=== PATIENT | male | born 1990 | race Caucasian/White ===

== ENCOUNTER 2024-03-06 17:45 | Emergency (ER) | payer SELFPAY ==
[~2024-03-06] VITALS: Ht 182.9 cm; Wt 81.0 kg
[2024-03-06 17:58] VITALS: BP 134/93; RESP 18; TEMP 98.2; O2SAT 98
[2024-03-06 18:03] VITALS: PULSE 104
[2024-03-08] MEDS ORDERED: ONDA4TAB50 SL (11:24)
[2024-03-08] MEDS ORDERED: TOPUD PO (11:24)
[2024-03-08] MEDS ORDERED: PANT40TA51 PO (11:24)
== END 2024-03-06 21:44 | disposition left against medical advice (07) ==
LOC: ER 17:45
DX: R10.9 Unspecified abdominal pain (principal); Z53.21 Procedure and treatment not carried out due to patient leaving prior to being seen by health care provider

== ENCOUNTER 2024-11-19 09:11 | Emergency (ER) | payer MEDICAID ==
[~2024-11-19] VITALS: Ht 182.9 cm; Wt 91.0 kg
[~2024-11-19 09:11] MED LIST: ONDA4TAB50 SL; PANT40TA51 PO; TOPUD PO
[2024-11-19 09:19] VITALS: O2SAT 100
[2024-11-19] MEDS: MORPHINE SULFATE 4 MG/ML INJ (FOR IV/IM USE) IV STA (09:54)
[2024-11-19] MEDS: ONDANSETRON HCL 4MG/2ML INJ IV STA (09:55)
[2024-11-19] MEDS: SODIUM CHLORIDE 0.9% 1,000 ML IV ONE (09:55)
[2024-11-19] MEDS: MAGNESIUM/ALUMINUM HYDROXIDE/SIMETHICONE 30ML UDC PO STA (09:55)
[2024-11-19] MEDS: PANTOPRAZOLE SODIUM 40 MG/VIAL IV STA (09:55)
[2024-11-19 09:58] LABS: BASOPHILS % 0.4 % (0.0-2.0); EOSINOPHILS % 0.4 % (0.0-5.0); HEMATOCRIT. 48.5 % (42.0-52.0); HEMOGLOBIN. 15.9 g/dL (14.0-18.0); LYMPHOCYTES % 16.5 % (20.0-50.0); MEAN CORPUSCULAR HEMOGLOBIN 27.5 pg (28.0-32.0); MEAN CORPUSCULAR HGB CONC 32.8 g/dL (31.0-37.0); MEAN CORPUSCULAR VOLUME 83.7 fL (80.0-94.0); MEAN PLATELET VOLUME 7.7 fl (7.4-10.4); MONOCYTES % 7.5 % (2.0-8.0); NEUTROPHILS % 75.2 % (40.0-76.0); PLATELET 331 x1000/uL (130-400); RED CELL DISTRIBUTION WIDTH 13.4 % (11.6-14.6); WHITE BLOOD COUNT 12.6 x1000/uL (4.5-11.0)
[2024-11-19 10:00] LABS: CLARITY URINE CLEAR (CLEAR); COLOR URINE YELLOW (YELLOW); GLUCOSE URINE NEGATIVE (NEGATIVE); KETONES URINE 3+ (NEGATIVE); LEUKOCYTE ESTERASE URINE NEGATIVE (NEGATIVE); NITRITE URINE NEGATIVE (NEGATIVE); OCCULT BLOOD URINE NEGATIVE (NEGATIVE); PH URINE 6.5 (4.5-8.0); PROTEIN URINE NEGATIVE (NEGATIVE); SPECIFIC GRAVITY URINE 1.016 (1.005-1.030)
[2024-11-19 10:04] LABS: INR 1.1; PROTHROMBIN TIME 11.4 sec (9.6-11.0)
[2024-11-19 10:08] LABS: CHLORIDE 92 mEq/L (98-107); POTASSIUM 3.4 mEq/L (3.5-5.1); SODIUM 131 mEq/L (136-145)
[2024-11-19 10:09] LABS: CALCIUM 10.2 mg/dL (8.7-10.4); CARBON DIOXIDE 28 mEq/L (21-32)
[2024-11-19 10:14] LABS: CREATININE 0.9 mg/dL (0.6-1.3); GLUCOSE 129 mg/dL (70-105)
[2024-11-19 10:15] LABS: UREA NITROGEN BLOOD 9 mg/dL (9-23)
[2024-11-19 10:16] LABS: ALANINE AMINOTRANSFERASE 37 IU/L (10-49); ALBUMIN 5.1 g/dL (3.2-4.8); ASPARTATE AMINOTRANSFERASE 27 IU/L (<34); BILIRUBIN DIRECT 0.3 mg/dL (<=3.0); PROTEIN TOTAL 8.6 g/dL (6.0-8.3)
[2024-11-19 10:19] LABS: *AMPHETAMINES SCREEN URINE NEGATIVE (NEGATIVE); *BARBITURATES SCREEN URINE NEGATIVE (NEGATIVE); *BENZODIAZEPINES SCREEN URINE NEGATIVE (NEGATIVE); *COCAINE SCREEN URINE NEGATIVE (NEGATIVE)
[2024-11-19 10:20] LABS: CANNABINOID URINE SCREEN PRESUMPTIVE POSITIVE (NEGATIVE); ECSTASY MDMA SCREEN URINE NEGATIVE (NEGATIVE); METHADONE URINE SCREEN NEGATIVE (NEGATIVE); OPIATES URINE SCREEN NEGATIVE (NEGATIVE); PHENCYCLIDINE URINE SCREEN NEGATIVE (NEGATIVE)
[2024-11-19] MEDS: DEXT 5%/LACTATED RINGERS 1,000 ML IV NR (10:39)
[2024-11-19 10:41] LABS: ETHANOL BLOOD < 10 mg/dL (<10)
[2024-11-19] MEDS: POTASSIUM CHLORIDE 20MEQ TABLET SR PO NR (11:14)
[2024-11-19] MEDS: METOCLOPRAMIDE HCL 10MG/2ML VIAL IV ONE (11:30)
[2024-11-19] MEDS: DIPHENHYDRAMINE 50MG/ML VIAL IV ONE (11:30)
[2024-11-19] MEDS ORDERED: ONDA-239 PO (12:23)
[2024-11-19] MEDS ORDERED: PROT40 MT (12:23)
[2024-11-19 12:46] VITALS: BP 146/89; PULSE 89; RESP 18; TEMP 37.1; O2SAT 99
== END 2024-11-19 12:49 | disposition home or self-care (01) ==
LOC: ER 09:11
DX: R10.13 Epigastric pain (principal); R11.2 Nausea with vomiting, unspecified; Z79.899 Other long term (current) drug therapy
CPT/HCPCS: 80076; 80305; 80048; 81003; 80320; 83690; 85025; 85610; 36415; 74176; 96365; 96375; 99285; J1200; J2765; J2405; J2470; J2270; J7030; Z7610; G0480

== ENCOUNTER 2024-11-20 14:11 | Emergency (ER) | payer MEDICAID ==
[~2024-11-20] VITALS: Ht 182.9 cm; Wt 91.0 kg
[~2024-11-20 14:11] MED LIST changes: +ONDA-239 PO; +PROT40 MT
[2024-11-20 14:14] VITALS: O2SAT 100
[2024-11-20 14:51] VITALS: TEMP 36.9; O2SAT 98
[2024-11-20 15:42] LABS: BASOPHILS % 0.4 % (0.0-2.0); EOSINOPHILS % 1.1 % (0.0-5.0); HEMATOCRIT. 42.6 % (42.0-52.0); HEMOGLOBIN. 14.1 g/dL (14.0-18.0); LYMPHOCYTES % 17.6 % (20.0-50.0); MEAN CORPUSCULAR HEMOGLOBIN 28.3 pg (28.0-32.0); MEAN CORPUSCULAR VOLUME 85.7 fL (80.0-94.0); MEAN PLATELET VOLUME 7.8 fl (7.4-10.4); MONOCYTES % 6.8 % (2.0-8.0); NEUTROPHILS % 74.1 % (40.0-76.0); PLATELET 302 x1000/uL (130-400); RED BLOOD CELL COUNT 4.97 mill/uL (4.7-6.1); RED CELL DISTRIBUTION WIDTH 13.4 % (11.6-14.6)
[2024-11-20 15:47] LABS: CHLORIDE 97 mEq/L (98-107); POTASSIUM 3.5 mEq/L (3.5-5.1); SODIUM 135 mEq/L (136-145)
[2024-11-20 15:48] LABS: CALCIUM 9.8 mg/dL (8.7-10.4); CARBON DIOXIDE 25 mEq/L (21-32)
[2024-11-20 15:53] LABS: CREATININE 0.8 mg/dL (0.6-1.3); GLUCOSE 107 mg/dL (70-105)
[2024-11-20 15:54] LABS: UREA NITROGEN BLOOD 7 mg/dL (9-23)
[2024-11-20 15:55] LABS: ALANINE AMINOTRANSFERASE 30 IU/L (10-49); ALBUMIN 4.6 g/dL (3.2-4.8); ASPARTATE AMINOTRANSFERASE 21 IU/L (<34); BILIRUBIN DIRECT 0.3 mg/dL (<=3.0); ETHANOL BLOOD < 10 mg/dL (<10)
[2024-11-20 15:56] LABS: BILIRUBIN TOTAL 0.7 mg/dL (0.1-1.0); PROTEIN TOTAL 7.7 g/dL (6.0-8.3)
[2024-11-20 17:09] LABS: CLARITY URINE CLEAR (CLEAR); COLOR URINE DARK YELLOW (YELLOW); GLUCOSE URINE NEGATIVE (NEGATIVE); KETONES URINE 3+ (NEGATIVE); LEUKOCYTE ESTERASE URINE TRACE (NEGATIVE); NITRITE URINE NEGATIVE (NEGATIVE); OCCULT BLOOD URINE NEGATIVE (NEGATIVE); PROTEIN URINE TRACE (NEGATIVE); SPECIFIC GRAVITY URINE 1.016 (1.005-1.030)
[2024-11-20] MEDS: MAGNESIUM/ALUMINUM HYDROXIDE/SIMETHICONE 30ML UDC PO STA (17:34)
[2024-11-20] MEDS: VISCOUS LIDOCAINE 2% 15 ML UDC PO STA (17:34)
[2024-11-20 17:55] LABS: BACTERIA URINE NONE SEEN; RBC URINE 0-2 /hpf (0-2); SQUAMOUS EPITHELIAL CELL URINE RARE /lpf (RARE/1+); WBC URINE 0-2 /hpf (0-2)
[2024-11-20 18:12] VITALS: BP 120/82; PULSE 98; RESP 18
[2024-11-20] MEDS: KETOROLAC 30MG/ML VIAL IV STA (18:12)
[2024-11-20] MEDS: FAMOTIDINE 20MG/2ML VIAL IV STA (18:12)
[2024-11-20] MEDS: METOCLOPRAMIDE HCL 10MG/2ML VIAL IV STA (18:12)
[2024-11-20] MEDS: DICYCLOMINE HCL 10MG/ML 2ML VIAL IM ONE (18:15)
[2024-11-20] MEDS: SODIUM CHLORIDE 0.9% 1,000 ML IV ONE (18:30)
== END 2024-11-20 19:51 | disposition left against medical advice (07) ==
LOC: ER 14:11
DX: R10.9 Unspecified abdominal pain (principal); Z79.899 Other long term (current) drug therapy
CPT/HCPCS: 80076; 80048; 81003; 80320; 83690; 85025; 36415; 96361; 96372; 96374; 96375; 99284; J0500; J3490; J1885; J2765; J7030; Z7610; G0480